=== PATIENT | male | born 2000 | race African-American/Black ===

== ENCOUNTER 2020-05-30 10:58 | Emergency (ER) | payer OTHER, SELFPAY ==
[2020-05-30 11:08] VITALS: BP 144/89; PULSE 66; RESP 19; TEMP 36.9; O2SAT 99; BMI 24.4
--- NOTE | 2020-05-30 11:11 | HMH.EDUTC ---
[facility] Disposition Clinical Impression: Sinusitis Qualifiers: Sinusitis location: maxillary Chronicity: acute Recurrence: non-recurrent Qualified Code(s): J01.00 - Acute maxillary sinusitis, unspecified Disposition: Home, Self-Care Condition on Discharge: Good Instructions: DI for Sinusitis Prescriptions: Amoxicillin [Amoxicillin 875MG Tab] 875 mg PO Q12H #20 tab Transmission Status: Pending to [id number] predniSONE [Prednisone 20mg Tab] 20 mg PO BID 5 Days #10 tab Transmission Status: Pending to [id number] Referrals: Parveen Brooks [Primary Care Provider] - Medical Decision Making - Mohamud Inquiry Pt receiving controlled substance: No - Lab Data Lab results reviewed: Yes: I reviewed the patient's lab results. [facility] HPI - General Stated complaint: sinus inf nose bleed Time Seen by Provider: 05/30/20 11:11 - History of Present Illness Provider Complaint: SInus pain, pressure, nosebleeds X several days. No fever. Denies ear pain, sore throat. No cough. No vomiting or diarrhea. No known exposure to COVID19. Has frequent seasonal allergies. Onset (ago): day(s) (3) Relieving factors: none Exacerbating factors: none Associated symptoms: denies other symptoms Treatments prior to arrival: none - Related Data Previous Rx's Medication Instructions Recorded Sulfamethoxazole/Trimethoprim 1 each PO BID 10 Days #20 tab 03/08/19 [Bactrim DS tablet] cephALEXin [Cephalexin 500mg Tab] 500 mg PO Q6H 10 Days #40 tab 03/08/19 Amoxicillin [Amoxicillin 875MG 875 mg PO Q12H #20 tab 05/30/20 Tab] predniSONE [Prednisone 20mg 20 mg PO BID 5 Days #10 tab 05/30/20 Tab] Allergies Allergy/AdvReac Type Severity Reaction Status Date / Time No Known Allergies Allergy Verified 03/08/19 15:27 [facility] History - Hepatitis A Screen Attestation statement:: This patient has been screened for Hepatitis A risk factors. I have reviewed the patient's past medical history: Yes - Social History Smoking Status: Never smoker Alcohol Intake: never Occupational Status: student ROS Obtained: Yes All systems reviewed & no additional complaints - Constitutional Constitutional: Denies body ache, Denies chills, Denies fever(s) - ENT Ears, Nose, Mouth, and Throat: Reports epistaxis, Reports sinus pain, Reports sinus pressure Physical Exam - General General appearance: alert, in no apparent distress - Head Head exam: atraumatic, normocephalic, normal inspection - Eye Eye exam: Present: normal appearance, PERRL, EOMI - ENT ENT exam: Present: normal exam, normal oropharynx, mucous membranes moist, TM's normal bilaterally, normal external ear exam - Expanded ENT Exam Nose exam: Present: sinus tenderness - Neck Neck exam: Present: normal inspection, full ROM, trachea midline. Absent: meningismus, lymphadenopathy - Chest Chest inspection: Present: normal inspection, symmetric chest wall rise. Absent: tenderness - Respiratory Respiratory exam: Present: normal lung sounds bilaterally. Absent: respiratory distress - Cardiovascular Cardiovascular exam: Present: regular rate, normal rhythm. Absent: JVD - Abdominal Exam Abdominal exam: Present: soft, normal bowel sounds. Absent: distention, tenderness, guarding - Extremities Exam Extremities exam: Present: normal inspection, full ROM, normal capillary refill. Absent: calf tenderness - Back Exam Back exam: Present: normal inspection. Absent: tenderness - Neurological Exam Neurological exam: Present: alert, oriented X3 - Psychiatric Psychiatric exam: Present: normal affect, normal mood - Skin Skin exam: Present: warm, dry, intact, normal color - Lymphatic Lymphatic Findings: no adenopathy
[2020-05-30 11:27] VITALS: BP 144/89; PULSE 66; RESP 19; TEMP 36.9; O2SAT 99
== END 2020-05-30 11:27 | disposition home or self-care (01) ==
PROVIDERS: Emergency Provider Physician Assistant; PCP Pediatrics
DX: J01.00 Acute maxillary sinusitis, unspecified (principal)
CPT/HCPCS: 99201

== ENCOUNTER 2022-02-22 21:04 | Emergency (ER) | payer OTHER, SELFPAY ==
[2022-02-22 21:06] VITALS: BP 135/61; PULSE 88; RESP 18; TEMP 37.6; O2SAT 97; BMI 30.5
[2022-02-22 21:19] LABS: Coronavirus 19, PCR Not Detected (NotDetected); Influenza A, PCR Not Detected (NotDetected); Influenza B, PCR Not Detected (NotDetected)
[2022-02-22 21:26] LABS: Strep Scrn Group A (Rapid) Positive (Negative)
--- NOTE | 2022-02-22 22:22 | HMH.EDURI ---
ED Disposition Clinical Impression: Strep pharyngitis Disposition: Home, Self-Care Condition on Discharge: Good Instructions: DI for Strep Throat Additional Instructions: gargle and change tooth brush and fluids and advil and tyenol and use meds Prescriptions: Cefdinir [Omnicef 300mg Capsule] 300 mg PO BID #14 cap Transmission Status: Pending to [facility] predniSONE [Prednisone 20mg Tab] 20 mg PO BID #10 tab Transmission Status: Pending to [id number] Referrals: Provider,Referral, [Primary Care Provider] - - Critical Care Critical Care Time: No Attestation: On 02/22/22, the high probability of a clinically significant, sudden or life threatening deterioration of the following system(s) required my full and direct attention, intervention and personal management. The time I documented below is in addition to time spent performing reported procedures but includes the following listed in this critical care notation. Medical Decision Making - Medical Records Medical records reviewed: Yes: I reviewed the patient's medical records. - Mohamud Inquiry Pt receiving controlled substance: No Vital Signs: 02/22/22 21:06 Temperature 99.6 F Temperature Source Oral Pulse Rate [Apical] 88 Respiratory Rate 18 Blood Pressure [Right Arm] 135/61 Blood Pressure Mean [Right Arm] 85 Blood Pressure Source [Right Arm] Automatic Cuff Blood Pressure Position [Right Arm] Sitting 02 Sat by Pulse Oximetry 97 Oxygen Delivery Method Room Air - Lab Data Lab results reviewed: Yes: I reviewed the patient's lab results. Lab Results 02/22/22 21:16: Group A Strep Rapid Positive A 02/22/22 21:16: SARS-CoV-2 (PCR) Not detected, Influenza A Untype (PCR) Not detected, Influenza Type B (PCR) Not detected 02/22/22 22:30: WBC 12.7 H, RBC 6.01, Hgb 14.8, Hct 44.5, MCV 74.1 L, MCH 24.6 L, MCHC 33.2, RDW 14.2, Plt Count 145, MPV 10.1, Neut % (Auto) 75.7, Lymph % (Auto) 12.3, Stephen[place] % (Auto) 7.8, Eos % (Auto) 3.1, Baso % (Auto) 1.1, Neut # (Auto) 9.6 H, Lymph # (Auto) 1.6, Stephenson # (Auto) 1.0, Eos # (Auto) 0.4, Baso # (Auto) 0.1 02/22/22 22:30: Sodium 135 L, Potassium 4.1, Chloride 102, Carbon Dioxide 28, Anion Gap 9.1, BUN 6 L, Creatinine 0.70, Estimated Creat Clear 209, Estimated GFR 142, Est GFR ( Amer) 172, Glucose 105 H, Calcium 8.3 L, Total Bilirubin < 0.1 L, AST 32, ALT 28, Alkaline Phosphatase 79, C-Reactive Protein 67.9 H, Total Protein 6.3, Albumin 3.8, Globulin 2.5, Albumin/Globulin Ratio 1.5 Result diagrams: 02/22/22 22:30 02/22/22 22:30 Orders (Tests/Meds): ED MEDICATIONS Generic Name Dose Route Start Last Admin Trade Name Freq PRN Reason Stop Dose Admin Sodium Chloride 1,000 mls @ 999 mls/hr 02/22/22 22:30 02/22/22 22:28 Sod Chlor 0.9% 1000ml Bag IV 02/22/22 23:30 999 mls/hr .Q1H1M CORRINA Administration Ceftriaxone Sodium 1 gm/ 50 mls @ 100 mls/hr 02/22/22 22:30 02/22/22 22:29 Sodium Chloride IV 03/08/22 22:29 100 mls/hr Q24H CORRINA Administration Discontinued Medications Generic Name Dose Route Start Last Admin Trade Name Freq PRN Reason Stop Dose Admin Acetaminophen 1,000 mg 02/22/22 21:30 02/22/22 21:32 Acetaminophen 500mg Tab PO 02/22/22 21:31 1,000 mg ONCE ONE Administration Ibuprofen 600 mg 02/22/22 21:30 02/22/22 21:32 Ibuprofen 600 Mg Tablet PO 02/22/22 21:31 600 mg ONCE ONE Administration Ketorolac Tromethamine 30 mg 02/22/22 22:26 02/22/22 22:29 Ketorolac 30mg/Ml Vial IV 02/22/22 22:27 30 mg ONCE ONE Administration Methylprednisolone Sodium Succinate 125 mg 02/22/22 22:26 02/22/22 22:29 Methylprednisolone Sod Succ 125mg Vial IV 02/22/22 22:27 125 mg ONCE ONE Administration ORDERS Category Date Time Status C-Reactive Protein Stat Lab 02/22/22 22:30 Results Complete Blood Count Auto Diff Stat Lab 02/22/22 22:30 Results Comprehensive Metabolic Panel Stat Lab 02/22/22 22:30 Results Erythrocyte Sedim
[2022-02-22 22:39] LABS: Basophils # 0.1 K/mm3 (0-0.2); Basophils % 1.1 % (0.1-2.0); Eosinophils # 0.4 K/mm3 (0.0-0.4); Eosinophils % 3.1 % (0.1-12.0); Hematocrit 44.5 % (42.0-52.0); Hemoglobin 14.8 g/dL (14.1-18.0); Lymphocytes # 1.6 K/mm3 (0.7-4.5); Lymphocytes % 12.3 % (10-50); Mean Corpuscular HGB Conc 33.2 g/dL (31.8-35.4); Mean Corpuscular Hemoglobin 24.6 pg (27.0-31.2); Mean Corpuscular Volume 74.1 fl (80-94); Mean Platelet Volume 10.1 fl (7.4-10.4); Monocytes % 7.8 % (1.7-9.3); Neutrophils # 9.6 K/mm3 (1.8-7.8); Neutrophils % 75.7 % (37.0-80.0); Platelet Count 145 K/mm3 (142-424); Red Blood Count 6.01 M/mm3 (4.60-6.20); Red Cell Distribution Width 14.2 % (11.5-17.5); White Blood Count 12.7 K/mm3 (4.8-10.8)
[2022-02-22 22:46] LABS: Alanine Aminotransferase 28 U/L (12-78); Albumin Level 3.8 g/dl (3.5-5.0); Albumin/Globulin Ratio 1.5 (1.1-1.8); Alkaline Phosphatase 79 U/L (38-126); Anion Gap 9.1 mEq/L (5-15); Aspartate Amino Transferase 32 U/L (17-59); Blood Urea Nitrogen 6 mg/dl (9-20); Calcium 8.3 mg/dl (8.4-10.2); Carbon Dioxide 28 mmol/L (22.0-30.0); Chloride 102 mmol/L (98-107); Creatinine Clearance Estimated 209 mL/min (50-200); Estimated Glomerular Filt Rate 142 ml/min (>60); GFR (African American) 172 ML/MIN (>60); Globulin 2.5 g/dL (1.3-3.2); Glucose 105 mg/dl (74-100); Potassium 4.1 mmoL/L (3.5-5.1); Sodium 135 mmol/L (136-145); Total Protein,Serum 6.3 g/dl (6.3-8.2)
[2022-02-22 22:47] LABS: Bilirubin,Total < 0.1 mg/dl (0.2-1.3)
[2022-02-22 22:51] LABS: C-Reactive Protein 67.9 mg/L (0-4)
[2022-02-22 23:05] LABS: Procalcitonin 0.232 ng/mL (0.0-2.0)
[2022-02-22 23:11] VITALS: BP 130/60; PULSE 78; RESP 18; TEMP 36.7; O2SAT 99
[2022-02-22 23:13] LABS: Erythrocyte Sedimentation Rate 1 mm/hr (0-15)
== END 2022-02-22 23:36 | disposition home or self-care (01) ==
PROVIDERS: Emergency Provider Emergency Medicine
DX: J02.0 Streptococcal pharyngitis (principal); B95.0 Streptococcus, group A, as the cause of diseases classified elsewhere; R53.1 Weakness; Z20.822 Contact with and (suspected) exposure to COVID-19; Z88.2 Allergy status to sulfonamides; Z88.8 Allergy status to other drugs, medicaments and biological substances
CPT/HCPCS: 80053; 84145; 85025; 85651; 86140; 87430; 96361; 96374; 96375; 99285; C9803; J0696; U0003; U0005

== ENCOUNTER 2023-10-20 09:15 | Emergency (ER) | payer SELFPAY ==
[2023-10-20] VITALS (10 sets, daily range): BP systolic 102–140; BP diastolic 59–99; PULSE 82–99; RESP 18–21; TEMP 36.7–37; O2SAT 96–100; BMI 25.2; BMI 25.0
--- NOTE | 2023-10-20 09:25 | EXP.UTC ---
Discharge Plan Disposition Patient Disposition: Still a Patient Condition: Undetermined Prescriptions Prescriptions: New ondansetron 4 mg tablet,disintegrating 4 mg PO Q6H PRN (Reason: nausea and vomiting) 4 Days Qty: 16 0RF famotidine [Pepcid] 20 mg tablet 20 mg PO DAILY 30 Days Qty: 30 0RF ibuprofen [IBU] 600 mg tablet 600 mg PO Q6H PRN (Reason: pain) 5 Days Qty: 20 0RF No Action acetaminophen 500 mg/15 mL liquid 1,000 mg PO QID PRN (Reason: pain) Qty: 237 0RF Referrals Follow up/Referrals: Parveen Brooks [Primary Care Provider] - See instructions Activity Restrictions/Add. Instructions Additional Instructions/Restrictions: You have been evaluated in the ED for your complaints. You may follow-up with your PCP in the next 3 to 5 days. Please return to ED for any new or worsening symptoms. I have written for prescription for Zofran to assist with your nausea and vomiting. Please take this as needed. Please drink plenty of fluids over the next several days. Clinical Impressions Clinical Impression: Viral syndrome, Diarrhea, Vomiting, Chest pain, Hypercalcemia Discharge ED Provider: Alf Baldwin [facility] General Chief complaint: PAIN Stated complaint: sternim pain ba fever vomiting st Time Seen by Provider: 10/20/23 10:43 History of Present Illness Provider Complaint: Patient complained of sore throat, pain behind sternum. States 4-5 days ago he had several episodes of vomiting. Thought vomitus was bloody at that time. Has had intermittent fevers. Has nausea, no appetite. States he hasn't really eaten for 4-5 days. No diarrhea. Has abdominal cramps. Onset (ago): day(s) (5) Location: chest and abdomen Related Data Previous Rx's Medication Instructions Recorded famotidine 20 mg tablet (Pepcid) 20 mg PO DAILY 30 days #30 tabs 10/20/23 ibuprofen 600 mg tablet (IBU) 600 mg PO Q6H PRN pain 5 days #20 10/20/23 tabs ondansetron 4 mg disintegrating 4 mg PO Q6H PRN nausea and 10/20/23 tablet vomiting 4 days #16 tabs acetaminophen 500 mg/15 mL oral 1,000 mg (30 mL) PO QID PRN pain 10/23/23 liquid #237 mL Allergies Allergy/AdvReac Type Severity Reaction Status Date / Time No Known Allergies Allergy Verified 10/23/23 15:53 [facility] Disclaimer: The information contained in this section may have been updated after the patient was seen, as this information can be updated by other users. Medical History (Updated 10/23/23 @ 15:55 by Sofia Shaver MA) Cellulitis Chest pain Gastroesophageal reflux disease Hypercalcemia Surgical History (Updated 10/23/23 @ 15:55 by Sofia Shaver MA) No pertinent past surgical history Family History (Updated 10/23/23 @ 15:56 by Sofia Shaver MA) No significant family history Family/Other Social History (Updated 10/23/23 @ 15:56 by Sofia Shaver MA) Smoking Status: Never smoker alcohol intake: never substance use type: denies use current occupational status: employed Travel in the last 8 weeks: None ROS Obtained: Yes All systems reviewed & no additional complaints except as documented Constitutional Constitutional: Reports fever(s) and Reports malaise ENT Ears, Nose, Mouth, and Throat: Reports sore throat Cardiovascular Cardiovascular: Reports as per HPI and Reports chest pain Gastrointestinal Gastrointestingal: Reports vomiting Physical Exam General General appearance: alert and in no apparent distress Respiratory Respiratory exam: Present normal lung sounds bilaterally Cardiovascular Cardiovascular exam: Present regular rate and normal rhythm Neurological Exam Neurological exam: Present alert and oriented X3 Medical Decision Making Mohamud Inquiry Pt receiving controlled substance: No Lab Data Lab results reviewed: Yes I reviewed the patient's lab results. 10/20/23 11:00 10/20/23 11:00 Medical Decision Narrative: Due to sternal pain, hematemesis, abnormal UA - patient was transferred to ER for further workup
--- NOTE | 2023-10-20 10:49 | XR_ITS ---
FINAL REPORT CLINICAL HISTORY: cough, chest discomfort, smoker x 2 yrs FINDINGS: Two views of the chest were obtained. The heart size and pulmonary vascularity are within normal limits. The mediastinum is normal. No acute pulmonary abnormality is identified. There is no pneumothorax. The bony thorax is intact. IMPRESSION: No active cardiopulmonary disease. Reviewed, Interpreted and Dictated by Paramjit Huynh III, MD Transcribed by Laura Lawrence Authenticated and . [facility]
--- NOTE | 2023-10-20 10:49 | PC.NURSE ---
Called RAD about xray
[2023-10-20 10:54] LABS: UTC Influenza A Antigen Negative (Negative); UTC Influenza B Antigen Negative (Negative); UTC Strep Screen (Rapid) Negative (Negative)
[2023-10-20 10:55] LABS: Apearance,Urine Clear (Clear); Bilirubin,Urine 1+ (Negative); Blood, Urine 2+ (Negative); Color,Urine Yellow (Yellow); Glucose,Urine (UA) Negative (Negative); Ketones,Urine 1+ (Negative); Protein,Urine 1+ (Negative); Specific Gravity, Urine 1.015 (1.005-1.030); UTC Leukocyte Esterase,Urine Negative (Negative); UTC Nitrate,Urine Negative (Negative); Urobilinogen,Urine 0.2 EU/dl (0.2)
--- NOTE | 2023-10-20 10:55 | PC.NURSE ---
Pt ambulatory to ED room 11 from [facility]
--- NOTE | 2023-10-20 11:10 | PC.NURSE ---
Dr. Baldwin at BS for pt eval
--- NOTE | 2023-10-20 11:17 | HMH.EDGENADL ---
Discharge Plan Disposition Patient Disposition: Home, Self-Care Condition: Good Prescriptions Prescriptions: New ondansetron 4 mg tablet,disintegrating 4 mg PO Q6H PRN (Reason: nausea and vomiting) 4 Days Qty: 16 0RF famotidine [Pepcid] 20 mg tablet 20 mg PO DAILY 30 Days Qty: 30 0RF ibuprofen [IBU] 600 mg tablet 600 mg PO Q6H PRN (Reason: pain) 5 Days Qty: 20 0RF No Action amoxicillin 875 MG tablet 875 mg PO Q12H Qty: 20 0RF prednisone 20 MG tablet 20 mg PO BID 5 Days Qty: 10 0RF prednisone 20 MG tablet 20 mg PO BID Qty: 10 0RF cefdinir 300 MG capsule 300 mg PO BID Qty: 14 0RF sulfamethoxazole-trimethoprim 1 EACH tablet 1 each PO BID 10 Days Qty: 20 0RF cephalexin 500 MG tablet 500 mg PO Q6H 10 Days Qty: 40 0RF Referrals Follow up/Referrals: Parveen Brooks [Primary Care Provider] - See instructions Activity Restrictions/Add. Instructions Additional Instructions/Restrictions: You have been evaluated in the ED for your complaints. You may follow-up with your PCP in the next 3 to 5 days. Please return to ED for any new or worsening symptoms. I have written for prescription for Zofran to assist with your nausea and vomiting. Please take this as needed. Please drink plenty of fluids over the next several days. Clinical Impressions Clinical Impression: Viral syndrome, Diarrhea, Vomiting, Chest pain, Hypercalcemia Discharge ED Provider: Alf Baldwin Adult HPI General Chief complaint: PAIN Stated complaint: sternim pain ba fever vomiting st Time Seen by Provider: 10/20/23 10:43 Mode of Arrival: Ambulatory Source of Information: Patient Limitations: No Limitations Description of Symptoms (Recalled from ER Triage Doc. by RN): Pt was transferred from the [facility] for suspected dehydration and epigastric pain. Pt. complains of vomiting, diarrhea, shortess of air, chills, and fever since Monday. He started having substernal pain that worsened with inspiration yesterday. History of Present Illness HPI narrative: 22-year-old male with no pertinent past medical history, presents today for evaluation concerning substernal chest pain that is nonradiating and has been present over the past 5 days. He also reports decreased oral intake and also states that he has had nonbloody diarrhea that seems to be improving. Subjective fevers and chills. Has had 2 episodes of vomiting this morning. Was seen at urgent care today and sent to the ED for further management with concerns for dehydration. No further complaints at this time. Related Data Previous Rx's Medication Instructions Recorded cephalexin 500 mg tablet 500 mg PO Q6H 10 days #40 tabs 03/08/19 sulfamethoxazole 800 1 each PO BID 10 days #20 tabs 03/08/19 mg-trimethoprim 160 mg tablet amoxicillin 875 mg tablet 875 mg PO Q12H #20 tabs 05/30/20 prednisone 20 mg tablet 20 mg PO BID 5 days #10 tabs 05/30/20 cefdinir 300 mg capsule 300 mg PO BID #14 caps 02/22/22 prednisone 20 mg tablet 20 mg PO BID #10 tabs 02/22/22 famotidine 20 mg tablet (Pepcid) 20 mg PO DAILY 30 days #30 tabs 10/20/23 ibuprofen 600 mg tablet (IBU) 600 mg PO Q6H PRN pain 5 days #20 10/20/23 tabs ondansetron 4 mg disintegrating 4 mg PO Q6H PRN nausea and 10/20/23 tablet vomiting 4 days #16 tabs Allergies Allergy/AdvReac Type Severity Reaction Status Date / Time No Known Allergies Allergy Verified 03/08/19 15:27 [facility] Disclaimer: The information contained in this section may have been updated after the patient was seen, as this information can be updated by other users. Social History Smoking Status: Current every day smoker alcohol intake: never current occupational status: employed Travel in the last 8 weeks: None ROS Obtained: Yes All systems reviewed & no additional complaints except as documented Physical Exam General General appearance: alert and in no apparent distress Head Head exam: atraumatic and normocephalic Eye Eye exam: Present normal appearance, PERRL and EOMI ENT ENT exam: Present normal oropharynx and mucous membranes moist Neck Neck exam: Present full ROM; Absent meningismus Respiratory Respiratory exam: Absent respiratory distress, wheezes, stridor or accessory muscle use Cardiovascular Cardiovascular exam: Present normal rhythm Abdominal Exam Abdominal exam: Present soft; Absent distention, tenderness, guarding, rebound or rigidity Neurological Exam Neurological exam: Present alert, oriented X3 and CN II-XII intact; Absent motor sensory deficit Psychiatric Psychiatric exam: Present normal affect and normal mood Skin Skin exam: Present warm and dry Medical Decision Making Medical Records Medical records reviewed: Yes I reviewed the patient's medical records. Mohamud Inquiry Pt receiving controlled substance: No Mohamud was queried for this patient: No Vital Signs: 10/20/23 10:15 10/20/23 11:06 10/20/23 11:20 Temperature 98.3 F 98.6 F Temperature Source Oral Oral Pulse Rate 85 Pulse Rate [Right Radial] 90 89 Respiratory Rate 20 21 Blood Pressure 124/73 Blood Pressure [Right Arm] 140/99 H 131/59 L Blood Pressure Mean Blood Pressure Mean [Right Arm] 112 83 Blood Pressure Source [Right Arm] Automatic Cuff Automatic Cuff Blood Pressure Position [Right Arm] Sitting Sitting 02 Sat by Pulse Oximetry 96 98 98 Oxygen Delivery Method Room Air Room Air Room Air 10/20/23 11:55 10/20/23 12:01 10/20/23 12:20 Temperature Temperature Source Pulse Rate 92 H 90 Pulse Rate [Right Radial] Respiratory Rate Blood Pressure 125/70 113/72 102/61 L Blood Pressure [Right Arm] Blood Pressure Mean 86 Blood Pressure Mean [Right Arm] Blood Pressure Source [Right Arm] Blood Pressure Position [Right Arm] 02 Sat by Pulse Oximetry 98 100 97 Oxygen Delivery Method Room Air Room Air Room Air 10/20/23 13:00 10/20/23 13:21 10/20/23 13:42 Temperature Temperature Source Pulse Rate 82 99 H 95 H Pulse Rate [Right Radial] Respiratory Rate Blood Pressure 129/95 H 124/74 109/81 L Blood Pressure [Right Arm] Blood Pressure Mean Blood Pressure Mean [Right Arm] Blood Pressure Source [Right Arm] Blood Pressure Position [Right Arm] 02 Sat by Pulse Oximetry 99 98 97 Oxygen Delivery Method Room Air Room Air Room Air Lab Data Lab Results 10/20/23 10:49: Urine Color Yellow, Urine Appearance Clear, Urine pH 6.0, Ur Specific Freedom 1.015, Urine Protein 1+, Urine Glucose (UA) Negative, Urine Ketones 1+, Urine Blood 2+, Urine Nitrate Negative, Urine Bilirubin 1+ A, Urine Urobilinogen 0.2, Ur Leukocyte Esterase Negative, Influenza Type A Ag Negative, Influenza Type B Ag Negative, Strep Scn Rapid Clinic Negative 10/20/23 11:00: WBC 9.2, RBC 7.00 H, Hgb 16.6, Hct 51.7, MCV 73.8 L, MCH 23.6 L, MCHC 32.0, RDW 14.3, Plt Count 138 L, MPV 10.2, Neut % (Auto) 73.8, Lymph % (Auto) 15.8, [place] % (Auto) 9.7 H, Eos % (Auto) 0.4, Baso % (Auto) 0.3, Neut # (Auto) 6.8, Lymph # (Auto) 1.5, [place] # (Auto) 0.9, Eos # (Auto) 0.0, Baso # (Auto) 0.0, Sodium 138, Potassium 4.3, Chloride 102, Carbon Dioxide 27, Anion Gap 13.3, BUN 13, Creatinine 1.00, Estimated Creat Clear 119, Estimated GFR 93, Est GFR ( Amer) 113, Glucose 92, Lactate 0.9, Calcium 10.5 H, Total Bilirubin 0.6, AST 32, ALT 25, Alkaline Phosphatase 82, Troponin I < 0.01, Total Protein 8.1 D, Albumin 4.7, Globulin 3.4 H, Albumin/Globulin Ratio 1.4, Lipase 20 L 10/20/23 11:00 10/20/23 11:00 Orders (Tests/Meds): ED MEDICATIONS Discontinued Medications Generic Name Dose Route Start Last Admin Trade Name Freq PRN Reason Stop Dose Admin Lactated Ringer's 1,000 mls @ 999 mls/hr 10/20/23 11:14 10/20/23 11:27 Lactated Ringer's 1000 Ml Bag IV 10/20/23 12:14 999 mls/hr .Q1H1M ONE Administration Ketorolac Tromethamine 15 mg 10/20/23 11:14 10/20/23 11:26 Ketorolac 30mg/Ml Vial IV 10/20/23 11:15 15 mg ONCE ONE Administration Ondansetron HCl 4 mg 10/20/23 11:14 10/20/23 11:25 Ondansetron 4mg/2ml Vial IV 10/20/23 11:15 4 mg ONCE ONE Administration ORDERS Category Date Time Status XR chest 2V Stat Exams 10/20/23 10:49 Taken Complete Blood Count Auto Diff Stat Lab 10/20/23 11:00 Completed Comprehensive Metabolic Panel Stat Lab 10/20/23 11:00 Completed Lactic Acid Stat Lab 10/20/23 11:00 Completed Lipase Stat Lab 10/20/23 11:00 Completed Troponin I Q3H Lab 10/20/23 14:30 Ordered Troponin I Q3H Lab 10/20/23 17:30 Ordered Troponin I Stat Lab 10/20/23 11:00 Completed Strep Screen Confirmation Stat Micro 10/20/23 10:49 Received Urine Culture Stat Micro 10/20/23 10:18 Received ECG initial Besson Routine Y 10/20/23 11:29 Completed Medical Decision Narrative: 22-year-old male with no pertinent past medical history, presents today for evaluation concerning substernal chest pain that is nonradiating and has been present over the past 5 days. He also reports decreased oral intake and also states that he has had nonbloody diarrhea that seems to be improving. Subjective fevers and chills. Has had 2 episodes of vomiting this morning. Was initially seen in urgent care today however was sent to the ED for further management. On assessment, the patient was medically stable and in no acute distress. Afebrile. Mildly tachycardic. Decreased breath sounds at bilateral bases. Abdomen soft nondistended and nontender to palpation. No peripheral edema was noted. Otherwise exam vitals unremarkable. Differential diagnoses include but not limited to COVID, influenza, RSV, ACS, gastritis, gastroenteritis, among others. There is no elevation in WBC on patient's lab workup today. WBC of 9.2. Platelets 138. He did have a calcium of 10.5 which could be due to a degree of dehydration in the setting of his fluid losses. Urinalysis with no signs of UTI. He did have 1+ bilirubin and 1+ protein. Negative influenza and strep screens. He was given a fluid bolus while in the ED was also given pain management. On reassessment the patient willis medically stable and in no acute distress. He stated that his symptoms were improved at this time. Discussed with patient ED work-up and results and current plan to discharge. Will send home with prescription for Zofran to assist with his nausea and vomiting. Will also provide him with prescription for ibuprofen for his chest pain. He also added that he has taken Tums in the past that has relieved his chest pain and so I did write for prescription of Pepcid. Provided with return to ED precautions and instructions concerning PCP follow-up. Patient verbalized understanding and agreement with plan. Subsequently discharged hemodynamically stable and in no acute distress. Critical Care Critical Care Time Critical Care Time: No
[2023-10-20] MEDS: ONDANSETRON 4MG/2ML VIAL 4 MG IV (11:25)
[2023-10-20] MEDS: KETOROLAC 30MG/ML VIAL 15 MG IV (11:26)
[2023-10-20] MEDS: LACTATED RINGERS 1000ML 1,000 ML 999 ML IV (11:27)
[2023-10-20 11:28] LABS: Chloride 102 mmol/L (98-107); Potassium 4.3 mmoL/L (3.5-5.1); Sodium 138 mmol/L (136-145)
--- NOTE | 2023-10-20 11:29 | ECG_ITS ---
APPROVED REPORT Exam: Resting ECG HR:77 bpm ECG Measurements Heart Rate 77 AXES NC 152 P 51 QRSd 92 QRS 96 QT 322 T 28 QTc 354 Conclusion SINUS RHYTHM BORDERLINE RIGHT AXIS DEVIATION [QRS AXIS > 90] BORDERLINE ECG UNCONFIRMED REPORT Electronically signed by : Emile Solis MD 10/21/2023 06:31:38
[2023-10-20 11:31] LABS: Alanine Aminotransferase 25 U/L (12-78); Albumin Level 4.7 g/dl (3.5-5.0); Albumin/Globulin Ratio 1.4 (1.1-1.8); Alkaline Phosphatase 82 U/L (38-126); Anion Gap 13.3 mEq/L (5-15); Aspartate Amino Transferase 32 U/L (17-59); Bilirubin,Total 0.6 mg/dl (0.2-1.3); Blood Urea Nitrogen 13 mg/dl (9-20); Calcium 10.5 mg/dl (8.4-10.2); Carbon Dioxide 27 mmol/L (22.0-30.0); Creatinine Clearance Estimated 119 mL/min (50-200); Estimated Glomerular Filt Rate 93 ml/min (>60); GFR (African American) 113 ML/MIN (>60); Globulin 3.4 g/dL (1.3-3.2); Glucose 92 mg/dl (74-100); Lactic Acid 0.9 mmol/L (0.7-2.1); Lipase 20 U/L (23-300); Total Protein,Serum 8.1 g/dl (6.3-8.2)
--- NOTE | 2023-10-20 11:32 | PC.NURSE ---
Pt gone to RAD
[2023-10-20 11:34] LABS: Basophils % 0.3 % (0.1-2.0); Eosinophils % 0.4 % (0.1-12.0); Hematocrit 51.7 % (42.0-52.0); Hemoglobin 16.6 g/dL (14.1-18.0); Lymphocytes # 1.5 K/mm3 (0.7-4.5); Lymphocytes % 15.8 % (10-50); Mean Corpuscular Hemoglobin 23.6 pg (27.0-31.2); Mean Corpuscular Volume 73.8 fl (80-94); Mean Platelet Volume 10.2 fl (7.4-10.4); Monocytes # 0.9 K/mm3 (0.1-1.0); Monocytes % 9.7 % (1.7-9.3); Neutrophils # 6.8 K/mm3 (1.8-7.8); Neutrophils % 73.8 % (37.0-80.0); Platelet Count 138 K/mm3 (142-424); Red Cell Distribution Width 14.3 % (11.5-17.5); White Blood Count 9.2 K/mm3 (4.8-10.8)
--- NOTE | 2023-10-20 11:40 | PC.NURSE ---
Pt returned from RAD
[2023-10-20 11:51] LABS: Troponin I < 0.01 ng/ml (0.00-0.034)
--- NOTE | 2023-10-20 13:18 | PC.NURSE ---
ROUNDED ON PT, ICE CHIPS PROVIDED. REPORTS SOME IMPROVEMENT. CALL LIGHT WITHIN REACH
== END 2023-10-20 14:12 | disposition still patient (30) ==
LOC: UTC 10:46 → ER 10:54
PROVIDERS: Physician Assistant; Emergency Provider Emergency Medicine; PCP Pediatrics
DX: R07.9 Chest pain, unspecified (principal); R10.13 Epigastric pain; E83.52 Hypercalcemia; R11.10 Vomiting, unspecified; R19.7 Diarrhea, unspecified; B34.9 Viral infection, unspecified; R06.02 Shortness of breath; R50.9 Fever, unspecified; F17.200 Nicotine dependence, unspecified, uncomplicated; R00.0 Tachycardia, unspecified
CPT/HCPCS: 71046; 80053; 81003; 83605; 83690; 84484; 85025; 87086; 87804; 87880; 93005; 96361; 96374; 96375; 99285; J2405

== ENCOUNTER 2023-10-21 19:27 | Emergency (ER) | payer SELFPAY ==
[2023-10-21 19:36] LABS: Coronavirus 19, PCR Not Detected (NotDetected); Influenza A, PCR Not Detected (NotDetected); Influenza B, PCR Not Detected (NotDetected)
[2023-10-21 19:39] VITALS: BP 126/81; PULSE 101; RESP 20; TEMP 36.9; O2SAT 99; BMI 25.0
--- NOTE | 2023-10-21 19:41 | XR_ITS ---
PROCEDURE INFORMATION: Exam: XR Chest Exam date and time: 10/21/2023 7:42 PM Age: 22 years old Clinical indication: Pain; Angina pectoris; Additional info: Chest pain TECHNIQUE: Imaging protocol: Radiologic exam of the chest. Views: 1 view. COMPARISON: CR XR CHEST 2V 10/20/2023 11:22 AM FINDINGS: Lungs: Unremarkable. No consolidation. Pleural spaces: Unremarkable. No pleural effusion. No pneumothorax. Heart/Mediastinum: Unremarkable. No cardiomegaly. Bones/joints: Unremarkable. IMPRESSION: No acute findings.
--- NOTE | 2023-10-21 19:42 | ED_ITS ---
Discharge Plan Disposition Patient Disposition: Left Against Medical Advice Prescriptions Prescriptions: No Action amoxicillin 875 MG tablet 875 mg PO Q12H Qty: 20 0RF prednisone 20 MG tablet 20 mg PO BID 5 Days Qty: 10 0RF prednisone 20 MG tablet 20 mg PO BID Qty: 10 0RF cefdinir 300 MG capsule 300 mg PO BID Qty: 14 0RF ondansetron 4 mg tablet,disintegrating 4 mg PO Q6H PRN (Reason: nausea and vomiting) 4 Days Qty: 16 0RF famotidine [Pepcid] 20 mg tablet 20 mg PO DAILY 30 Days Qty: 30 0RF ibuprofen [IBU] 600 mg tablet 600 mg PO Q6H PRN (Reason: pain) 5 Days Qty: 20 0RF sulfamethoxazole-trimethoprim 1 EACH tablet 1 each PO BID 10 Days Qty: 20 0RF cephalexin 500 MG tablet 500 mg PO Q6H 10 Days Qty: 40 0RF Referrals Follow up/Referrals: Miguel Pepe DO [Staff Physician] - See instructions Parveen Brooks [Primary Care Provider] - See instructions Clinical Impressions Clinical Impression: Left against medical advice, Chest pain Discharge ED Provider: Robert Barriga HPI General Chief Complaint: Upper Respiratory Infection Stated Complaint: chest discomfort,headache ,not able to eat Time Seen by Provider: 10/21/23 19:30 History of Present Illness HPI narrative: Patient is a 22-year-old male with no pertinent past medical history presents emergency department for repeat evaluation of chest pain. Onset was acute, occurring since Monday, substernal, there is an associated forced cough as if he feels something is stuck but he is unable to clear. There is associated vomiting and diarrhea approximately 2 episodes each per day. Patient has been taking a significant amount of Tums for which symptoms transiently improved. Patient was evaluated in the emergency room yesterday and deemed appropriate for discharge. Due to persistent symptoms he presents here for continued evaluation. Related Data Previous Rx's Medication Instructions Recorded cephalexin 500 mg tablet 500 mg PO Q6H 10 days #40 tabs 03/08/19 sulfamethoxazole 800 1 each PO BID 10 days #20 tabs 03/08/19 mg-trimethoprim 160 mg tablet amoxicillin 875 mg tablet 875 mg PO Q12H #20 tabs 05/30/20 prednisone 20 mg tablet 20 mg PO BID 5 days #10 tabs 05/30/20 cefdinir 300 mg capsule 300 mg PO BID #14 caps 02/22/22 prednisone 20 mg tablet 20 mg PO BID #10 tabs 02/22/22 famotidine 20 mg tablet (Pepcid) 20 mg PO DAILY 30 days #30 tabs 10/20/23 ibuprofen 600 mg tablet (IBU) 600 mg PO Q6H PRN pain 5 days #20 10/20/23 tabs ondansetron 4 mg disintegrating 4 mg PO Q6H PRN nausea and 10/20/23 tablet vomiting 4 days #16 tabs Allergies Allergy/AdvReac Type Severity Reaction Status Date / Time No Known Allergies Allergy Verified 03/08/19 15:27 [facility] Disclaimer: The information contained in this section may have been updated after the patient was seen, as this information can be updated by other users. Social History Smoking Status: Never smoker alcohol intake: never current occupational status: employed Travel in the last 8 weeks: None ROS Obtained: Yes Systems reviewed as appropriate & no additional complaints except as documented Physical Exam General General appearance: alert and in no apparent distress Head Head exam: atraumatic and normocephalic Eye Eye exam: Present PERRL and EOMI ENT ENT exam: Present mucous membranes moist Neck Neck exam: Present normal inspection Chest Chest inspection: Present normal inspection and symmetric chest wall rise Respiratory Respiratory exam: Present normal lung sounds bilaterally; Absent respiratory distress Cardiovascular Cardiovascular exam: Present regular rate and normal rhythm Abdominal Exam Abdominal exam: Present soft; Absent tenderness Extremities Exam Extremities exam: Present normal inspection Neurological Exam Neurological exam: Present alert Psychiatric Psychiatric exam: Present normal affect Skin Skin exam: Present warm and dry HEART Score HEART Score HEART Score assessment performed?: No Critical Care Critical Care Time Critical Care Time: No Medical Decision Making Mohamud Inquiry Pt receiving controlled substance: No Vital Signs Vital Signs: 10/21/23 19:39 10/21/23 20:05 Temperature 98.5 F 98.5 F Temperature Source Oral Oral Pulse Rate 101 H Pulse Rate [Left Radial] 101 H Respiratory Rate 20 20 Blood Pressure 126/81 Blood Pressure [Right Arm] 126/81 Blood Pressure Mean [Right Arm] 96 Blood Pressure Source Automatic Cuff Blood Pressure Source [Right Arm] Automatic Cuff Blood Pressure Position Sitting Blood Pressure Position [Right Arm] Supine 02 Sat by Pulse Oximetry 99 Oxygen Delivery Method Room Air Room Air Lab Data Labs: Lab Results 10/21/23 19:30: SARS-CoV-2 (PCR) Not detected, Influenza A Untype (PCR) Not detected, Influenza Type B (PCR) Not detected Response Orders (Tests/Meds): ED MEDICATIONS Discontinued Medications Generic Name Dose Route Start Last Admin Trade Name Giovanny PRN Reason Stop Dose Admin Acetaminophen 1,000 mg 10/21/23 19:41 10/21/23 20:01 Acetaminophen 500mg Tab PO 10/21/23 19:42 Not Given ONCE ONE Belladonna Alkaloids 60 ml 10/21/23 19:41 10/21/23 19:59 Belladonna Alkaloids 60 Ml Ml PO 10/21/23 19:42 60 ml ONCE ONE Administration ORDERS Category Date Time Status CXR --portable [XR chest portable] Stat Exams 10/21/23 19:41 Taken CBC w/Auto Diff [Complete Blood Count Auto Diff] Stat Lab 10/21/23 19:40 Ordered CMP [Comprehensive Metabolic Panel] Stat Lab 10/21/23 19:40 Ordered D-Dimer Stat Lab 10/21/23 19:41 Ordered Lipase Stat Lab 10/21/23 19:40 Ordered Rapid PCR Covid and Flu A/B Stat Lab 10/21/23 19:30 Completed Trop I [Troponin I] Stat Lab 10/21/23 19:40 Ordered EKG Request [ECG Request] Stat Y 10/21/23 19:41 Ordered MDM Narrative Medical Decision Narrative: In summary patient is a 22-year-old male with past medical history described above presents emergency department for evaluation of chest pain. Patient is hemodynamically stable nontoxic-appearing upon arrival, afebrile. Differential diagnosis includes ACS, pericarditis, peptic ulcer disease, pancreatitis, among others. Workup will be conducted with hematologic labs, viral swab, chest x- ray, EKG, troponin. Initial interventions include Tylenol, GI cocktail. Unfortunately prior to completion of workup patient refused hematologic labs and is wishing to sign out AGAINST MEDICAL ADVICE. Patient signed out AGAINST MEDICAL ADVICE with nursing and I instructed nursing to give him access to PCP with Dr. Pepe.
[2023-10-21] MEDS: BELLADONNA ALKALOIDS 60 ML ML PO (19:59)
--- NOTE | 2023-10-21 20:03 | PC.NURSE ---
pt refused medications and requests to leave against medical advice
[2023-10-21 20:05] VITALS: BP 126/81; PULSE 101; RESP 20; TEMP 36.9; O2SAT 99
--- NOTE | 2023-10-21 20:07 | PC.NURSE ---
Upon entering room to start IV pt states he want to leave ED because we are doing the same thing for him as when he was here yesterday. Pt educated on risks of leaving ED. aware. AMA form signed.
== END 2023-10-21 20:09 | disposition left against medical advice (07) ==
PROVIDERS: Emergency Provider Emergency Medicine; PCP Pediatrics
DX: R07.9 Chest pain, unspecified (principal); R51.9 Headache, unspecified; R11.10 Vomiting, unspecified; R19.7 Diarrhea, unspecified
CPT/HCPCS: 71045; 87636; 93005; 99285

== ENCOUNTER 2023-10-23 17:06 | Outpatient (CLI) | payer OTHER, SELFPAY ==
[2023-10-23 17:17] LABS: Adenovirus F 40/41, stool Not Detected (NotDetected); Astrovirus Not Detected (NotDetected); Campylobacter Not Detected (NotDetected); Clostridium Difficile A/B, PCR Not Detected (NotDetected); Cryptosporidium Not Detected (NotDetected); Cyclospora Cayetanesis Not Detected (NotDetected); Entamoeba histolytica Not Detected (NotDetected); Enteroaggregative E coli Not Detected (NotDetected); Enteropathogenic E coli Not Detected (NotDetected); Enterotoxigenic E coli Not Detected (NotDetected); Giardia lamblia Not Detected (NotDetected); Norovirus Not Detected (NotDetected); Plesimonas Shigalloides, PCR Not Detected (NotDetected); Rotavirus A Not Detected (NotDetected); Salmonella, PCR Not Detected (NotDetected); Sapovirus Not Detected (NotDetected); Shiga-like toxin E coli Not Detected (NotDetected); Shigella Enterovasive E coli Not Detected (NotDetected); Vibrio Cholerae Not Detected (NotDetected); Vibrio, PCR Not Detected (NotDetected); Yersinia Entercolitica, PCR Not Detected (NotDetected)
== END 2023-10-23 23:59 ==
PROVIDERS: Visit Provider Student in an Organized Health Care Education/Training Program
DX: R19.7 Diarrhea, unspecified (principal); R11.10 Vomiting, unspecified
CPT/HCPCS: 87507

== ENCOUNTER 2023-10-31 08:00 | Outpatient (CLI) | payer OTHER, SELFPAY ==
--- NOTE | 2023-10-31 08:03 | US_ITS ---
FINAL REPORT CLINICAL HISTORY: RUQ TTP FINDINGS: RIGHT UPPER QUADRANT ULTRASOUND Sonographic images of the right upper quadrant were obtained. The pancreas is normal. There is a 2.1 x 1.9 cm hyperechoic focus in the liver, probably related to hemangioma. Trace sludge is seen in the gallbladder. The common duct is normal. Limited images of the right kidney are normal. IMPRESSION: Hemangioma in the liver. Gallbladder sludge. Reviewed, Interpreted and Dictated by Ede Buchanan MD Transcribed by Laura Lawrence Authenticated and [facility]
== END 2023-10-31 23:59 ==
LOC: RAD 08:03
PROVIDERS: PCP Student in an Organized Health Care Education/Training Program; Visit Provider Student in an Organized Health Care Education/Training Program
DX: R10.11 Right upper quadrant pain (principal)
CPT/HCPCS: 76705